=== PATIENT | female | born 1950 | race Caucasian/White ===

== ENCOUNTER → 2016-05-19 | Outpatient (CLI) | payer MEDICARE, OTHER ==
[2016-05-19 10:52] LABS: Hemoglobin A1C 4.6 % (4.2-6.1)
== END | disposition home or self-care (01) ==
LOC: LABWHC1 08:55
PROVIDERS: ATTEND Internal Medicine Endocrinology, Diabetes & Metabolism
DX: R73.09 Other abnormal glucose (principal)
CPT/HCPCS: 36415; 83036

== ENCOUNTER → 2016-11-05 | Outpatient (CLI) | payer MEDICARE, OTHER ==
--- NOTE | 2016-11-05 16:52 | US ---
EXAMINATION TYPE: US venous doppler duplex LE RT DATE OF EXAM: 11/05/2016 4:42 PM COMPARISON: NONE CLINICAL HISTORY: DVT R60.0. Rt lower leg, foot redness and pain SIDE PERFORMED: Right TECHNIQUE: The lower extremity deep venous system is examined utilizing real time linear array sonog jeremie with graded compression, doppler sonography and color-flow sonography. VESSELS IMAGED: External Iliac Vein (EIV) Common Femoral Vein Deep Femoral Vein Greater Saphenous Vein * Femoral Vein Popliteal Vein Small Saphenous Vein * Proximal Calf Veins (* superficial vessels) Right Leg: Negative for DVT IMPRESSION: No evidence of deep venous thrombosis in the right leg. Normal exam.
[2016-11-05 17:14] LABS: Basophils % (A) 0 %; CHCM 34.5; Eosinophils # (A) 0.1 k/uL (0-0.7); Eosinophils % (A) 1 %; HDW 2.49; HGB 15.1 gm/dL (11.4-16.0); Luc # (Auto) 0.24; Luc % (Auto) 2; Lymphocytes # (A) 1.2 k/uL (1.0-4.8); Lymphocytes % (A) 11 %; MCH 32.4 pg (25.0-35.0); MCHC 35.9 g/dL (31.0-37.0); MCV 90.2 fL (80.0-100.0); Mean Platelet Volume 6.9; Monocytes # (A) 0.6 k/uL (0-1.0); Monocytes % (A) 5 %; Neutrophils # (A) 9.1 k/uL (1.3-7.7); Neutrophils % (A) 81 %; RBC 4.66 m/uL (3.80-5.40); RDW 13.1 % (11.5-15.5); WBC 11.2 k/uL (3.8-10.6)
[2016-11-05 17:31] LABS: Anion Gap 13 mmol/L; Blood Urea Nitrogen 20 mg/dL (7-17); Calcium 9.8 mg/dL (8.4-10.2); Carbon Dioxide 28 mmol/L (22-30); Chloride 101 mmol/L (98-107); Glucose 64 mg/dL (74-99); Non-African American GFR(MDRD) >60 (>60 ml/min/1.73 sqM); Sodium 142 mmol/L (137-145)
[2016-11-05 17:32] LABS: Rheumatoid Factor, Qnt 14 IU/mL (<12)
[2016-11-05 18:26] LABS: C Reactive Protein 153.5 mg/L (<10.0)
[2016-11-05 20:55] LABS: Erythrocyte Sedimentation Rate 15 mm/hr (0-20)
[2016-11-06 14:11] LABS: C-ANCA <1:20 Titer (<1:20); P-ANCA <1:20 Titer (<1:20)
== END | disposition home or self-care (01) ==
LOC: RADUSWWP 16:22
PROVIDERS: ATTEND Family Medicine
DX: R60.0 Localized edema (principal); L03.119 Cellulitis of unspecified part of limb; I77.6 Arteritis, unspecified
CPT/HCPCS: 36415; 80048; 85025; 85652; 86038; 86140; 86255; 86431; 87040

== ENCOUNTER → 2016-11-17 | Outpatient (CLI) | payer MEDICARE, OTHER ==
--- NOTE | 2016-11-18 10:15 | ECHOF ---
Referral Reason:R01.1 Heart Murmur MEASUREMENTS -------- HEIGHT: 157.5 cm WEIGHT: 77.1 kg BP: 145/75 RVIDd: 3.0 cm (< 3.3) IVSd: 1.1 cm (0.6 - 1.1) LVIDd: 4.3 cm (3.9 - 5.3) LVPWd: 1.1 cm (0.6 - 1.1) IVSs: 1.5 cm LVIDs: 2.6 cm LVPWs: 1.5 cm LAESV Index (A-L): 16.33 ml/m Ao Diam: 3.3 cm (2.0 - 3.7) AV Cusp: 1.6 cm (1.5 - 2.6) LA Diam: 2.6 cm (2.7 - 3.8) MV EXCURSION: 13.883 mm (> 18.000) MV EF SLOPE: 44 mm/s (70 - 150) EPSS: 0.6 cm MV E Christophe: 0.49 m/s MV DecT: 310 ms MV A Christophe: 0.72 m/s MV E/A Ratio: 0.68 RAP: 5.00 mmHg RVSP: 25.24 mmHg FINDINGS -------- Sinus rhythm. This was a technically adequate study. The left ventricular size is normal. Left ventricular wall thickness is normal. Overall left ventricular systolic function is normal with, an EF between 55 - 60 %. The right ventricle is normal in size and function. Normal LA size by volume 22+/-6 ml/m2. The right atrium is normal in size. The aortic valve is trileaflet, and appears structurally normal. No aortic stenosis or regurgitation. The mitral valve is normal. There is trace mitral regurgitation. Trace tricuspid regurgitation present. There is no evidence of pulmonary hypertension. The right ventricular systolic pressure, as measured by Doppler, is 25.24mmHg. Trace/mild (physiologic) pulmonic regurgitation. The aortic root size is normal. Normal inferior vena cava with normal inspiratory collapse consistent with estimated right atrial pressure of 5 mmHg. There is no pericardial effusion. CONCLUSIONS -------- 1. Sinus rhythm. 2. The aortic root size is normal. 3. There is no pericardial effusion. 4. This was a technically adequate study. 5. Overall left ventricular systolic function is normal with, an EF between 55 - 60 %. 6. Normal LA size by volume 22+/-6 ml/m2. 7. The aortic valve is trileaflet, and appears structurally normal. No aortic stenosis or regurgitation. 8. There is trace mitral regurgitation. 9. Trace tricuspid regurgitation present. 10. There is no evidence of pulmonary hypertension. 11. Trace/mild (physiologic) pulmonic regurgitation. SERVICE DESK LEAD: Lane Thompson RDCS
== END | disposition home or self-care (01) ==
LOC: RADECHMAIN 15:37
PROVIDERS: ATTEND Family Medicine
DX: I08.1 Rheumatic disorders of both mitral and tricuspid valves (principal)
CPT/HCPCS: 93306

== ENCOUNTER → 2016-12-01 | Outpatient (CLI) | payer MEDICARE, OTHER ==
[2016-12-01 10:31] LABS: Basophils % (A) 1 %; CH 31.4; CHCM 33.7; Eosinophils # (A) 0.3 k/uL (0-0.7); Eosinophils % (A) 7 %; HCT 45.7 % (34.0-46.0); HDW 2.39; HGB 15.2 gm/dL (11.4-16.0); Luc % (Auto) 4; Lymphocytes # (A) 1.5 k/uL (1.0-4.8); Lymphocytes % (A) 29 %; MCH 31.1 pg (25.0-35.0); MCHC 33.3 g/dL (31.0-37.0); MCV 93.6 fL (80.0-100.0); Mean Platelet Volume 7.1; Monocytes # (A) 0.5 k/uL (0-1.0); Monocytes % (A) 10 %; Neutrophils # (A) 2.6 k/uL (1.3-7.7); Neutrophils % (A) 50 %; RBC 4.89 m/uL (3.80-5.40); RDW 14.2 % (11.5-15.5); WBC 5.2 k/uL (3.8-10.6); WBC (Perox) 5.34
[2016-12-01 11:56] LABS: ALT 53 U/L (9-52); AST 30 U/L (14-36); Anion Gap 10 mmol/L; Blood Urea Nitrogen 15 mg/dL (7-17); Carbon Dioxide 27 mmol/L (22-30); Chloride 104 mmol/L (98-107); Creatine Kinase 64 U/L (30-135); Glucose 59 mg/dL (74-99); Non-African American GFR(MDRD) >60 (>60 ml/min/1.73 sqM); Potassium 3.6 mmol/L (3.5-5.1); Sodium 141 mmol/L (137-145); Uric Acid 3.6 mg/dL (3.7-7.4)
[2016-12-01 12:00] LABS: Rheumatoid Factor, Qnt <9 IU/mL (<12)
[2016-12-01 12:14] LABS: Erythrocyte Sedimentation Rate 4 mm/hr (0-20)
[2016-12-01 12:35] LABS: C Reactive Protein <5.0 mg/L (<10.0)
[2016-12-01 17:12] LABS: Cyclic Citrull Pep IgG Unit <0.5 U/mL; Cyclic Citrullinated Pep IgG NEGATIVE (NEGATIVE)
[2016-12-02 11:08] LABS: HLA B27 NEGATIVE; HLA B27 Comment SEEBELOW
[2016-12-04 08:31] LABS: Mis test requested (Blood) ETA 14-3-3 PROTEIN
== END | disposition home or self-care (01) ==
LOC: LABWHC1 09:57
PROVIDERS: ATTEND Physician Assistant
DX: M45.0 Ankylosing spondylitis of multiple sites in spine (principal); M13.0 Polyarthritis, unspecified
CPT/HCPCS: 36415; 80048; 82164; 82306; 82550; 83520; 84439; 84443; 84450; 84460; 84550; 85025; 85652; 86140; 86200; 86431; 86812

== ENCOUNTER 2017-09-25 12:06 | Emergency (ER) | payer MEDICARE, OTHER ==
[2017-09-25 12:14] VITALS: RESP 18
[2017-09-25] MEDS ORDERED: ACETAMINOPHEN TAB 500 MG TAB PO STA (12:47)
[2017-09-25] MEDS ORDERED: IBUPROFEN 600 MG TAB PO STA (12:47)
[2017-09-25 12:58] LABS: Basophils # (A) 0.1 k/uL (0-0.2); Basophils % (A) 0 %; Eosinophils % (A) 0 %; HCT 39.2 % (34.0-46.0); HGB 12.8 gm/dL (11.4-16.0); Lymphocytes # (A) 1.2 k/uL (1.0-4.8); Lymphocytes % (A) 4 %; MCH 29.8 pg (25.0-35.0); MCHC 32.6 g/dL (31.0-37.0); MCV 91.6 fL (80.0-100.0); Mean Platelet Volume 7.7; Monocytes # (A) 1.9 k/uL (0-1.0); Monocytes % (A) 7 %; Neutrophils # (A) 23.4 k/uL (1.3-7.7); Neutrophils % (A) 87 %; Platelet Count 305 k/uL (150-450); RBC 4.27 m/uL (3.80-5.40); RDW 13.9 % (11.5-15.5)
[2017-09-25] MEDS: SODIUM CHLORIDE 0.9% 500 ML IV SCH ×4 (13:03→15:57)
[2017-09-25 13:04] LABS: WBC 26.9 k/uL (3.8-10.6)
[2017-09-25 13:07] LABS: INR 1.1 (<1.2); Partial Thromboplastin Time 24.4 sec (22.0-30.0)
[2017-09-25 13:08] LABS: ALT 160 U/L (9-52); AST 110 U/L (14-36); Albumin 3.7 g/dL (3.5-5.0); Alkaline Phosphatase 150 U/L (38-126); Anion Gap 16 mmol/L; Blood Urea Nitrogen 22 mg/dL (7-17); Calcium 9.5 mg/dL (8.4-10.2); Carbon Dioxide 23 mmol/L (22-30); Chloride 94 mmol/L (98-107); Glucose 380 mg/dL (74-99); Potassium 4.5 mmol/L (3.5-5.1); Sodium 133 mmol/L (137-145); Total Bilirubin 0.9 mg/dL (0.2-1.3); Total Protein 6.4 g/dL (6.3-8.2)
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
[2017-09-25 13:39] LABS: Appearance,Urine Clear (Clear); Bilirubin,Urine Negative (Negative); Blood,Urine Negative (Negative); Color,Urine Yellow; Glucose,Urine (UA) 4+ (Negative); Ketones,Urine Trace (Negative); Leukocyte Esterase,Urine Negative (Negative); Nitrite,Urine Negative (Negative); Protein,Urine Trace (Negative); Specific Gravity,Urine 1.025 (1.001-1.035); Urobilinogen,Urine <2.0 mg/dL (<2.0)
[2017-09-25] MEDS ORDERED: RX INFO: IV CONTRAST WAS GIVEN 1 EACH MISC MISCELLANE PRN (13:43)
--- NOTE | 2017-09-25 14:28 | XR ---
EXAMINATION TYPE: XR chest 2V DATE OF EXAM: 09/25/2017 COMPARISON: 02/04/2016 INDICATION: Pain, fever TECHNIQUE: Frontal and lateral views of the chest are obtained. FINDINGS: The heart size is normal. The pulmonary vasculature is normal. Small stable granuloma appears to be at the right costophrenic angle. No suspicious infiltrates are e vident. IMPRESSION: 1. No acute pulmonary process.
--- NOTE | 2017-09-25 14:58 | CT ---
EXAMINATION TYPE: CT abdomen pelvis w con DATE OF EXAM: 09/25/2017 COMPARISON: CT abdomen pelvis 11/10/2013 HISTORY: vomiting, fever, recent whipple procedure for insulinoma CT DLP: 864.2 mGycm Automated exposure control for dose reduction was used. TECHNIQUE: Helical acquisition of images from the lung bases through the pelvis have been completed. CONTRAST: Performed with Oral Contrast and with IV Contrast, patient injected with 100 mL of Isovue 300. FINDINGS: Patient is status post Whipple procedure. NG tube is in place. It is coiled within the stom ach. LUNG BASES: There is a bandlike areas of increased attenuation at the lung bases which may reflect at electasis. Granuloma present in the right lower lobe calcified right hilar nodes, subcarinal nodes. AORTA: No significant abnormality is appreciated. LIVER/GB: There is a low dense focus measuring 3 cm multiple air-fluid levels within the inferior asp ect of the posterior right lobe liver. Gallbladder is absent. There are low dense foci with nodular a reas of enhancement similar to prior CT, suggestive of hemangiomas. Liver shows low attenuation likel y due to hepatic steatosis. PANCREAS: Postop change status post pancreatectomy at the head of the pancreas, surgical clips are pr esent, body tail remain in place. SPLEEN: Calcifications are compatible with old granulomatous disease. ADRENALS: No significant abnormality is seen. KIDNEYS: Subcentimeter hypodense focus in the lower pole of the right kidney is indeterminate. No hyd ronephrosis bilaterally. 2 punctate nonobstructive calculi present within the left kidney as on prior REPRODUCTIVE ORGANS: Heterogeneously enhancing bulky appearance to the uterus suggests fibroids BOWEL: Postop changes are noted. There are surgical clips present in the anterior abdominal wall. FREE AIR: No Free Air visible. ASCITES: None visible. PELVIC ADENOPATHY: None visualized. RETROPERITONEAL ADENOPATHY: No Retroperitoneal Adenopathy visible. URINARY BLADDER: No significant abnormality is seen. OSSEOUS STRUCTURES: Degenerative disc disease and facet arthropathy noted at the lower lumbar spine, minimal anterolisthesis grade 1 L4-5. IMPRESSION: SMALL LIVER ABSCESS SUSPECTED. POSTOP CHANGES. PROBABLE BASILAR ATELECTASIS . NG TUBE IS DESCRIBED. A DDITIONAL FINDINGS ABOVE.
[2017-09-25] MEDS ORDERED: PIPERACILLIN-TAZOBACTAM 3.375 GM in DEXTROSE/WATER 1 50ML.BAG IVPB STA (15:13)
[2017-09-25] MEDS ORDERED: VANCOMYCIN IV PER PHARMACY 1 EACH MISC MISCELLANE PRN (15:13)
[2017-09-25] MEDS ORDERED: VANCOMYCIN 1,500 MG in SODIUM CHLORIDE 0.9% 250 ML IVPB STA (15:20)
[2017-09-25] MEDS ORDERED: cefTRIAXone IN SWFI 1,000 MG/10 ML SYRINGE IVP STA (15:23)
[2017-09-25 15:32] VITALS: TEMP 97.9
[2017-09-25 18:31] VITALS: BP 97/53; PULSE 65
== END 2017-09-25 18:30 ==
LOC: EC 12:06
DX: K75.0 Abscess of liver (principal); A41.9 Sepsis, unspecified organism; E78.5 Hyperlipidemia, unspecified; I10 Essential (primary) hypertension; Z79.82 Long term (current) use of aspirin; Z79.51 Long term (current) use of inhaled steroids; Z79.4 Long term (current) use of insulin; Z79.899 Other long term (current) drug therapy
CPT/HCPCS: 99285 ×2; 96365 ×2; 96366 ×3; 96375; 96374; 36415; 80053; 83605; 85025; 85610; 85730; 81003; 87040; 87086; 87077; 87186; 71046; 74177; 96372; J3370; J0696; J2353; Q9967

== ENCOUNTER → 2017-10-08 | Outpatient (CLI) | payer MEDICARE, OTHER ==
[2017-10-08 11:36] VITALS: BP 112/77; PULSE 75; RESP 16; TEMP 98.2
[2017-10-08 11:47] LABS: Basophils % (A) 1 %; Eosinophils # (A) 0.2 k/uL (0-0.7); Eosinophils % (A) 4 %; HCT 41.4 % (34.0-46.0); HGB 13.4 gm/dL (11.4-16.0); Lymphocytes # (A) 1.8 k/uL (1.0-4.8); Lymphocytes % (A) 28 %; MCH 29.1 pg (25.0-35.0); MCHC 32.4 g/dL (31.0-37.0); MCV 89.8 fL (80.0-100.0); Mean Platelet Volume 6.9; Monocytes # (A) 0.5 k/uL (0-1.0); Monocytes % (A) 8 %; Neutrophils # (A) 3.8 k/uL (1.3-7.7); Neutrophils % (A) 58 %; Platelet Count 562 k/uL (150-450); RBC 4.61 m/uL (3.80-5.40); WBC 6.6 k/uL (3.8-10.6)
[2017-10-08 12:03] LABS: Anion Gap 11 mmol/L; Blood Urea Nitrogen 15 mg/dL (7-17); Calcium 9.7 mg/dL (8.4-10.2); Carbon Dioxide 30 mmol/L (22-30); Chloride 99 mmol/L (98-107); Glucose 114 mg/dL (74-99); Potassium 4.2 mmol/L (3.5-5.1); Sodium 140 mmol/L (137-145)
== END | disposition home or self-care (01) ==
LOC: PROCWHC3 11:22
PROVIDERS: ATTEND Surgery Surgical Critical Care
DX: K75.0 Abscess of liver (principal)
CPT/HCPCS: 80048; 85025; 36591; J1642

== ENCOUNTER → 2017-10-29 | Outpatient (CLI) | payer MEDICARE, OTHER ==
[2017-10-29 15:05] LABS: ALT 59 U/L (9-52); AST 46 U/L (14-36); Albumin 4.2 g/dL (3.5-5.0); Alkaline Phosphatase 59 U/L (38-126); Anion Gap 11 mmol/L; Blood Urea Nitrogen 15 mg/dL (7-17); Calcium 9.4 mg/dL (8.4-10.2); Carbon Dioxide 26 mmol/L (22-30); Chloride 103 mmol/L (98-107); Glucose 118 mg/dL (74-99); Potassium 3.9 mmol/L (3.5-5.1); Sodium 140 mmol/L (137-145); Total Bilirubin 0.3 mg/dL (0.2-1.3); Total Protein 6.7 g/dL (6.3-8.2)
[2017-10-29 20:07] LABS: Hemoglobin A1C 6.8 % (4.0-6.0)
== END | disposition home or self-care (01) ==
LOC: LABWHC1 14:24
PROVIDERS: ATTEND Internal Medicine Endocrinology, Diabetes & Metabolism
DX: E10.65 Type 1 diabetes mellitus with hyperglycemia (principal)
CPT/HCPCS: 36415; 80053; 83036; 84681

== ENCOUNTER → 2017-11-06 | Outpatient (CLI) | payer MEDICARE, OTHER ==
--- NOTE | 2017-11-06 09:04 | FL ---
EXAMINIATION: Upper GI examination DATE: 11/06/2017 CLINICAL INDICATION: 66-year-old female history of insulinoma and Whipple procedure on 08/30/2017, pat ient with early satiety and fullness, assess for narrowing at the gastrojejunostomy. COMPARISON: Correlation CT 09/25/2017 Total Fluoroscopy Time: 2 minutes 37 seconds Total images: 6. FINDINGS: The esophagus has a normal course and caliber but shows moderate tertiary peristalsis. No mucosal abn ormality or fixed narrowing. No hiatal hernia is identified. Spontaneous moderate gastroesophageal reflux is encountered when the patient is brought supine. Howev er, subsequent Valsalva and positional maneuvers were unable to reproduce reflux. When the patient is supine, the refluxed contrast remains pooled in the esophagus and prominent terti lucie peristalsis is noted. The stomach shows a couple small less than 1 cm round filling defects likely representing small hyper plastic polyps towards the distal body and antrum region. Otherwise, no suspicious persistent filling defect is encountered. Postsurgical changes of Whipple procedure. The gastrojejunostomy is visualized and there is adequate passage across the anastomosis without any significant narrowing demonstrated Eventually, there is some reflux of contrast into the pancreaticobiliary limb. IMPRESSION: 1. Moderate tertiary peristalsis suggesting early presbyesophagus. When the patient is supine, contra st remains pooled in the esophagus. Even on the initial upright swallows, there is mild delay in pass age into the stomach. 2. An episode of moderate spontaneous gastroesophageal reflux when the patient is brought supine. How ever, Valsalva and positional maneuvers failed to reproduce this reflux. 3. A couple tiny hyperplastic polyps in the stomach are suggested and can be seen in the setting of c hronic inflammation. 4. Patent gastrojejunostomy status post Whipple.
== END | disposition home or self-care (01) ==
LOC: RADFLMAIN 07:42
PROVIDERS: ATTEND Surgery Surgical Critical Care
DX: D13.7 Benign neoplasm of endocrine pancreas (principal); K21.9 Gastro-esophageal reflux disease without esophagitis; Z98.890 Other specified postprocedural states
CPT/HCPCS: 74246

== ENCOUNTER → 2017-12-22 | Outpatient (CLI) | payer MEDICARE, OTHER ==
[2017-12-22 09:52] LABS: Basophils % (A) 1 %; Eosinophils # (A) 0.2 k/uL (0-0.7); Eosinophils % (A) 3 %; HCT 43.6 % (34.0-46.0); Lymphocytes # (A) 1.8 k/uL (1.0-4.8); Lymphocytes % (A) 36 %; MCH 27.1 pg (25.0-35.0); MCHC 32.2 g/dL (31.0-37.0); MCV 84.1 fL (80.0-100.0); Mean Platelet Volume 6.9; Monocytes # (A) 0.4 k/uL (0-1.0); Monocytes % (A) 8 %; Neutrophils # (A) 2.4 k/uL (1.3-7.7); Neutrophils % (A) 48 %; Platelet Count 246 k/uL (150-450); RBC 5.19 m/uL (3.80-5.40); RDW 15.3 % (11.5-15.5); WBC 5.1 k/uL (3.8-10.6)
[2017-12-22 10:05] LABS: ALT 53 U/L (9-52); AST 35 U/L (14-36); Alkaline Phosphatase 75 U/L (38-126); Anion Gap 8 mmol/L; Blood Urea Nitrogen 17 mg/dL (7-17); Calcium 9.7 mg/dL (8.4-10.2); Carbon Dioxide 31 mmol/L (22-30); Chloride 102 mmol/L (98-107); Cholesterol 133 mg/dL (<200); Glucose 109 mg/dL (74-99); HDL Cholesterol 51 mg/dL (40-60); LDL Cholesterol,Calculated 63 mg/dL (0-99); Potassium 3.6 mmol/L (3.5-5.1); Sodium 141 mmol/L (137-145); Total Bilirubin 0.5 mg/dL (0.2-1.3); Total Protein 6.8 g/dL (6.3-8.2); Triglycerides 95 mg/dL (<150)
== END | disposition home or self-care (01) ==
LOC: LABWHC1 09:18
PROVIDERS: ATTEND Nurse Practitioner Family
DX: I10 Essential (primary) hypertension (principal); E78.5 Hyperlipidemia, unspecified
CPT/HCPCS: 36415; 80053; 80061; 85025

== ENCOUNTER → 2018-02-23 | Outpatient (CLI) | payer MEDICARE, OTHER ==
--- NOTE | 2018-02-24 13:11 | MM ---
Reason for exam: screening (asymptomatic). Last mammogram was performed 2 years and 6 months ago. History: Patient is postmenopausal. Benign excisional biopsy. Physical Findings: A clinical breast exam by your physician is recommended on an annual basis and results should be correlated with mammographic findings. MG 3D Screening Mammo W/Cad Bilateral CC and MLO view(s) were taken. Prior study comparison: August 29, 2015, bilateral MG 3d screening mammo w/cad. April 21, 2013, bilateral digital screening mammo w/CAD. There are scattered fibroglandular densities. No significant changes when compared with prior studies. ASSESSMENT: Benign, BI-RAD 2 RECOMMENDATION: Routine screening mammogram of both breasts in 1 year.
== END | disposition home or self-care (01) ==
LOC: RADMAMWWP 09:22
PROVIDERS: ATTEND Family Medicine
DX: Z12.31 Encounter for screening mammogram for malignant neoplasm of breast (principal)
CPT/HCPCS: 77063; 77067

== ENCOUNTER → 2018-03-10 | Outpatient (CLI) | payer MEDICARE, OTHER | END | disposition home or self-care (01) | LOC: LABWHC1 09:51 | PROVIDERS: ATTEND Internal Medicine Endocrinology, Diabetes & Metabolism | DX: E13.9 Other specified diabetes mellitus without complications (principal) | CPT/HCPCS: 36415; 82947; 84681 ==

== ENCOUNTER → 2018-12-10 | Outpatient (CLI) | payer MEDICARE, OTHER ==
--- NOTE | 2018-12-10 09:46 | US ---
EXAMINATION TYPE: US abdomen complete DATE OF EXAM: 12/10/2018 COMPARISON: CT, [place] UGI CLINICAL HISTORY: R10.9 ABD PAIN. RUQ pain x 2 months; patient stated had Whipple procedure x 2 with most recent at [facility] 2018 for insulinoma; gallbladder removed; prior liver abscess EXAM MEASUREMENTS: Liver Length: 11.8 cm Gallbladder Wall: surgically removed CBD: 0.2 cm Spleen: 9.8 cm Right Kidney: 11.5 x 5.4 x 4.3 cm Left Kidney: 11.2 x 4.2 x 6.2 cm Pancreas: Visualized portions of the remaining pancreas appear unremarkable. Pancreatic head is surg ically absent. Liver: lobular, hyperechoic geographic areas noted throughout liver; hypoechoic oval area is noted r ight lobe = 1.6 x 1.4 x 1.1cm may be hemangioma as discussed on the prior CT of 09/25/2017 although th is does not have a typical appearance of a hemangioma on ultrasound there is background hepatic steat osis; multiple, hyperechoic foci noted in right lobe are likely granulomas. Overall hepatic echotextu re is inhomogeneous. Gallbladder: surgically removed Evidence for sonographic Guzman's sign: midline epigastric pain with probe pressure at overlying mima wel gas. No right upper quadrant pain. CBD: wnl Spleen: wnl Right Kidney: No hydronephrosis or masses seen Left Kidney: No hydronephrosis; hyperechoic, parallel foci suggests vessel wall calcifications Upper IVC: wnl Abd Aorta: wnl The liver is inhomogeneous. The intrahepatic portion of the IVC and proximal abdominal aorta are with in normal limits. There is no evidence of cholelithiasis. Common bile duct is unremarkable. The vi sualized portions of the pancreas are homogenous. The spleen is unremarkable. Kidneys are symmetric and free of hydronephrosis. No renal lesions are seen. IMPRESSION: 1. Inhomogeneous hepatic echotexture. Further evaluation with MRI liver is recommended to evaluate fo r altered perfusion, metastasis, or heterogeneity from geographic hepatic steatosis. 2. Postsurgical change of prior Whipple with partial pancreatectomy and surgical absence of the gallb ladder.
== END | disposition home or self-care (01) ==
LOC: RADUSWWP 08:15
PROVIDERS: ATTEND Internal Medicine Geriatric Medicine
DX: R10.9 Unspecified abdominal pain (principal); Z90.411 Acquired partial absence of pancreas; Z90.49 Acquired absence of other specified parts of digestive tract
CPT/HCPCS: 76700

== ENCOUNTER → 2019-01-04 | Outpatient (CLI) | payer MEDICARE, OTHER ==
--- NOTE | 2019-01-06 05:12 | MR ---
EXAMINATION TYPE: MR abdomen wo/w con DATE OF EXAM: 01/04/2019 COMPARISON: Ultrasound 12/10/[address] 09/25/2017 HISTORY: 68-year-old female Liver disease, unspecified. History of Whipple procedure followed by live r abscess. Technique: Multiplanar, multisequence images of the abdomen were obtained before and after administra tion of 7 ml mL intravenous Gadavist gadolinium contrast. FINDINGS: Liver normal size at 15.0 cm. No fatty infiltration of the liver on opposed phase T1-weighted sequen krish. Known 4.5 cm lobulated hemangioma posterior right liver lobe. Stable smaller hemangioma right hepatic dome measures 1.4 cm. A third and fourth small hemangioma posterior right hepatic lobe and anterior right liver lobe measure up to 1.1 cm. Some focal wedge-shaped vascular shunting anterolateral right liver lobe. The previously seen posterior inferior right liver abscess has resolved. Portal venous system is patent. The patient is status post Whipple procedure. No biliary ductal dilatation. The choledochojejunostomy is visualized. No enhancing pancreatic lesion. The main pancreatic duct is normal caliber. A couple subcentimeter T2 hyperintensities along the renal cortices compatible with small cysts. Gallbladder surgically absent. Possible 1.0 cm nodularity left adrenal gland, no progression from pat ient's prior CT. Spleen appears within normal limits. Foci of susceptibility artifact along the anterior abdominal wall from prior surgery. No upper abdominal lymphadenopathy, ascites fluid, or gross bowel abnormality. IMPRESSION: 1. Approximately 4 hepatic hemangiomas, largest measuring up to nearly 5 cm. Resolution of the patien t's previous right hepatic lobe abscess. 2. Status post Whipple procedure. The choledocho-jejunostomy is visualized. No biliary ductal dilatat ion. 3. No recurrent pancreatic lesion. 4. Possible 1 cm nodularity left adrenal gland is stable suggesting a benign etiology such as tiny ad renal adenoma.
== END | disposition home or self-care (01) ==
LOC: RADMRIMAIN 12:50
PROVIDERS: ATTEND Internal Medicine Geriatric Medicine
DX: D18.03 Hemangioma of intra-abdominal structures (principal); Z90.411 Acquired partial absence of pancreas
CPT/HCPCS: 74183; A9585

== ENCOUNTER → 2020-02-15 | Outpatient (CLI) | payer MEDICARE, OTHER ==
--- NOTE | 2020-02-16 20:28 | BD ---
EXAMINATION TYPE: Axial Bone Density DATE OF EXAM: 02/15/2020 COMPARISON: NONE CLINICAL HISTORY: Height: 60.5 IN Weight: 157 LBS RISK FACTORS HISTORY OF: Active: YES Postmenopausal woman: AGE 49 MEDICATIONS: Additional Medications: VIT D, BLOOD PRESSURE MEDS, CHOLESTEROL MEDS, METFORMIN, DIABETES MED EXAM MEASUREMENTS: Bone mineral densitometry was performed using the nChannel System. Bone mineral density as measured about the Lumbar spine is: ----- L1-L4(G/cm2): 1.359 T Score Values are as follows: ----- L2: 1.3 ----- L3: 3.3 ----- L4: 1.3 ----- L1-L4: 1.5 Bone mineral density BASELINE Bone mineral density about the R hip (g/cm2): 1.052 Bone mineral density about the L hip (g/cm2): 0.977 T Score values are as follows: -----R Neck: 0.1 -----L Neck: -0.4 -----R Total: 0.5 -----L Total: -0.2 Bone mineral density BASELINE IMPRESSION: Normal (Values between +1 and -1 indicate normal bone mass). Consider repeating this study in 5 year s or sooner if there is some new clinical indication. NOTE: T-SCORE=SD OF THE YOUNG ADULT MEAN.
--- NOTE | 2020-02-17 12:01 | MM ---
Reason for exam: screening (asymptomatic). Last mammogram was performed 2 years ago. History: Patient is postmenopausal. Benign excisional biopsy. Physical Findings: A clinical breast exam by your physician is recommended on an annual basis and results should be correlated with mammographic findings. MG 3D Screening Mammo W/Cad Bilateral CC and MLO view(s) were taken. Prior study comparison: February 23, 2018, bilateral MG 3d screening mammo w/cad. August 29, 2015, bilateral MG 3d screening mammo w/cad. There are scattered fibroglandular densities. There is chronic nodularity in the left breast upper outer quadrant. Global asymmetry upper outer quadrant is unchanged. No significant changes when compared with prior studies. ASSESSMENT: Benign, BI-RAD 2 RECOMMENDATION: Routine screening mammogram of both breasts in 1 year.
== END | disposition home or self-care (01) ==
LOC: RADMAMWWP 15:03
PROVIDERS: ATTEND Internal Medicine Geriatric Medicine
DX: Z12.31 Encounter for screening mammogram for malignant neoplasm of breast (principal); M81.0 Age-related osteoporosis without current pathological fracture
CPT/HCPCS: 77063; 77067; 77080

== ENCOUNTER → 2020-03-20 | Outpatient (CLI) | payer MEDICARE, OTHER ==
--- NOTE | 2020-03-20 15:22 | US ---
EXAMINATION TYPE: US transvaginal DATE OF EXAM: 03/20/2020 COMPARISON: NONE CLINICAL HISTORY: R10.2 PELVIC PAIN. Pain patient states she believes left ovary was removed 40 years ago. TECHNIQUE: Transvaginal (TV). EXAM MEASUREMENTS: Uterus: 5.7 x 3.9 x 5.5 cm Endometrial Stripe: .5 cm 1. Uterus: Retroverted Hypoechoic area seen 1.0 x .8 x 1.1 cm 2. Endometrium: wnl 3. Right Ovary: Obscured by overlying bowel gas 4. Left Ovary: Surgically absent 5. Bilateral Adnexa: wnl 6. Posterior cul-de-sac: wnl IMPRESSION: 1. Small hypoechoic area within what appears to be the uterine fundus. Small fibroid may be present.
== END | disposition home or self-care (01) ==
LOC: RADUSWWP 14:47
PROVIDERS: ATTEND Internal Medicine Geriatric Medicine
DX: R93.89 Abnormal findings on diagnostic imaging of other specified body structures (principal); R10.2 Pelvic and perineal pain
CPT/HCPCS: 76830

== ENCOUNTER → 2021-03-21 | Outpatient (CLI) | payer MEDICARE, OTHER ==
--- NOTE | 2021-03-25 09:27 | MM ---
Reason for exam: screening (asymptomatic). Last mammogram was performed 1 year and 1 month ago. History: Patient is postmenopausal. Benign excisional biopsy. Physical Findings: A clinical breast exam by your physician is recommended on an annual basis and results should be correlated with mammographic findings. MG 3D Screening Mammo W/Cad Bilateral CC and MLO view(s) were taken. Prior study comparison: February 15, 2020, bilateral MG 3d screening mammo w/cad. February 23, 2018, bilateral MG 3d screening mammo w/cad. There are scattered fibroglandular densities. There are benign appearing round calcifications bilaterally. There is chronic nodularity bilaterally. There is no discrete abnormality. ASSESSMENT: Benign, BI-RAD 2 RECOMMENDATION: Routine screening mammogram of both breasts in 1 year.
== END | disposition home or self-care (01) ==
LOC: RADMAMWWP 16:24
PROVIDERS: ATTEND Internal Medicine Geriatric Medicine
DX: Z12.31 Encounter for screening mammogram for malignant neoplasm of breast (principal)
CPT/HCPCS: 77063; 77067

== ENCOUNTER 2021-10-09 06:16 | Day surgery (SDC) | payer MEDICARE, OTHER ==
[2021-10-09] MEDS ORDERED: LIDOCAINE 1% (10MG/ML) FOR IV START INTRADERMA PRN (06:27)
[2021-10-09] MEDS ORDERED: LACTATED RINGERS 1,000 ML IV SCH (06:27)
[2021-10-09 07:10] VITALS: TEMP 97.1
[2021-10-09 07:14] LABS: Glucose,Whole Blood 131 mg/dL (75-99)
[2021-10-09] MEDS ORDERED: PROPOFOL 10 MG/ML 20 ML VIAL IV ONE (07:36)
--- NOTE | 2021-10-09 07:51 | P.PCN ---
Date of Procedure: 10/09/21 Procedure(s) Performed: BRIEF HISTORY: Patient is a 70-year-old pleasant white female scheduled for an elective colonoscopy as a part of screening for colorectal neoplasia and family history of colon cancer diagnosed in her mother at age 75. PROCEDURE PERFORMED: Colonoscopy. PREOPERATIVE DIAGNOSIS: Screening for colon cancer and family history of colon cancer. IV sedation per Anesthesia. PROCEDURE: After informed consent was obtained, the patient, was brought into the endoscopy unit. IV sedation was administered by Anesthesia under continuous monitoring. Digital rectal examination was normal. Initially the Olympus CF-160 flexible video colonoscope was then inserted in the rectum, gradually advanced into the cecum without any difficulty. Careful examination was performed as the scope was gradually being withdrawn. Ileocecal valve and the appendiceal orifice were visualized and appeared normal. Prep was excellent. Mucosa of the cecum, ascending colon, transverse colon, descending colon, sigmoid colon, and rectum appeared normal. At her sigmoid diverticulosis. Retroflexion was performed in the rectum and no lesions were seen. The patient tolerated the procedure well. IMPRESSION: Normal-appearing colon from rectum to cecum with no evidence of colorectal neoplasia . Scattered sigmoid diverticulosis. RECOMMENDATIONS: Findings of this examination were discussed with the patient as well as her family. She was advised to have a repeat screening colonoscopy in 5 years from now because of the family history of colon cancer.
[2021-10-09 08:17] VITALS: BP 120/67; PULSE 67; RESP 16
== END 2021-10-09 08:38 | disposition home or self-care (01) ==
LOC: ORWHC2ENDO 06:16
PROVIDERS: ATTEND Internal Medicine Gastroenterology
DX: K57.30 Diverticulosis of large intestine without perforation or abscess without bleeding (principal); Z80.0 Family history of malignant neoplasm of digestive organs
CPT/HCPCS: 45378; J2704

== ENCOUNTER → 2022-11-05 | Outpatient (CLI) | payer MEDICARE, OTHER ==
--- NOTE | 2022-11-05 15:51 | BD ---
EXAMINATION TYPE: Axial Bone Density DATE OF EXAM: 11/05/2022 CLINICAL HISTORY: 71 years old Female. ICD-10 CODE: M81.0 OSTEOPOROSIS Height: 60 Weight: 142.1 FRAX RISK QUESTIONS: Alcohol (3 or more units per day): no Family History (Parent hip fracture): no Glucocorticoids (More than 3mos): no History of Fracture in Adulthood: no Secondary Osteoporosis: 1. Type 1 Diabetes: no 2. Hyperthyroidism: no 3. Menopause before 45: yes 4. Malnutrition: no 5. Chronic liver disease: no Rheumatoid Arthritis: no Current Tobacco Use: no RISK FACTORS HISTORY OF: Hip Fracture (Right/Left): no Spine Fracture: no History of Wrist Fracture: no Surgery to Spine/Hip(right/left)/Wrist (right/left): no Family History of Osteoporosis: no Active: yes Diet low in dairy products/other sources of calcium: no Postmenopausal woman: yes Take estrogen and/or progesterone medications: no Lost more than 2 inches in height since high school: no Frequent falls: no Poor Health: no Hyperparathyroidism: no Adrenal Insufficiency: no MEDICATIONS: Prednisone or other steroids: no Thyroid Medications: no Osteoporosis Medications: no Additional Medications: BP Meds, Cholesterol Meds, Multi Vit, Vit D, Biotin, Magnesium, Ambien, Metfo rmin Additional History: EXAM MEASUREMENTS: Bone mineral densitometry was performed using the [employer] System. Bone mineral density as measured about the Lumbar spine is: ----- L1-L4(G/cm2): 1.329 T Score Values are as follows: ----- L1: -0.3 ----- L2: 1.1 ----- L3: 2.2 ----- L4: 1.4 ----- L1-L4: 1.2 Z Score Values are as follows: ----- L1: 1.4 ----- L2: 2.8 ----- L3: 3.9 ----- L4: 3.2 ----- L1-L4: 3.0 Bone mineral density has: decreased - 2.2 % since study of: 02/15/2020 Bone mineral density about the R hip (g/cm2): 1.011 Bone mineral density about the L hip (g/cm2): 0.923 T Score values are as follows: -----R Neck: 0.5 -----L Neck: -0.5 -----R Total: 0.0 -----L Total: -0.7 Z Score values are as follows: -----R Neck: 2.3 -----L Neck: 1.3 -----R Total: 1.6 -----L Total: 0.9 Bone mineral density has: decreased -5.8 % since study of: 02/15/2020 FRAX%s: The graph provided illustrates a 8.0% chance for a major osteoporotic fx and a 0.7% chance fo r the hips probability for fx in 10 years time. IMPRESSION: Normal (Values between +1 and -1 indicate normal bone mass). Consider repeating this study in 5 year s or sooner if there is some new clinical indication. NOTE: T-SCORE=SD OF THE YOUNG ADULT MEAN.
--- NOTE | 2022-11-06 08:38 | MM ---
Reason for Exam: Screening (asymptomatic). Last mammogram was performed 1 year(s) and 8 month(s) ago. Patient History: Menarche at age 13. First Full-Term at age 24. Left ovary removed at age 23. Postmenopausal. , Benign Excisional Biopsy. Risk Values: Vidya 5 year model risk: 1.8%. NCI Lifetime model risk: 5.1%. Prior Study Comparison: 02/23/2018 Bilateral Screening Mammogram, [facility]. 02/15/2020 Bilateral Screening Mammogram, [facility]. 03/21/2021 Bilateral Screening Mammogram, [facility]. Tissue Density: The breast tissue is heterogeneously dense. This may lower the sensitivity of mammography. Findings: Analyzed By CAD. There is no suspicious group of microcalcifications or new suspicious mass in either breast. Benign-appearing round calcifications bilaterally. Chronic nodularity bilaterally. Overall Assessment: Benign, BI-RAD 2 Management: Screening Mammogram of both breasts in 1 year. A clinical breast exam by your physician is recommended on an annual basis and results should be correlated with mammographic findings. Note on Vidya scores and lifetime risk: 1. A Vidya score greater than 3% is considered moderate risk. If this is the case, consider specialist referral to assess eligibility for a risk reducing agent. If overall lifetime risk for the development of breast cancer is 20% or higher, the patient may qualify for future screening with alternating mammogram and breast MRI. Electronically signed and approved by: Roger Benjamin D.O.
== END | disposition home or self-care (01) ==
LOC: RADBDWWP 14:35
PROVIDERS: ATTEND Internal Medicine Geriatric Medicine
DX: Z12.31 Encounter for screening mammogram for malignant neoplasm of breast (principal); M81.0 Age-related osteoporosis without current pathological fracture; Z78.0 Asymptomatic menopausal state
CPT/HCPCS: 77063; 77067; 77080

== ENCOUNTER → 2023-08-20 | Outpatient (CLI) | payer MEDICARE, OTHER ==
[2023-08-20 16:07] LABS: HCT 38.4 % (37.2-46.3); HGB 11.1 g/dL (12.0-15.0); MCH 21.6 pg (27.0-32.0); MCHC 28.9 g/dL (32.0-37.0); MCV 74.6 FL (80.0-97.0); Mean Platelet Volume 10.3 FL (9.5-12.2); NRBC Per 100 WBC 0 X 10*3/uL (0.00-0.01); Platelet Count 445 X 10*3/uL (140-440); RBC 5.15 X 10*6/uL (4.10-5.20); RDW 19.6 % (11.5-14.5); WBC 6.67 X 10*3/uL (4.50-10.00)
[2023-08-20 16:20] LABS: ALT 28 U/L (8-44); AST 18 U/L (13-35); Albumin 4.5 g/dL (3.8-4.9); Albumin/Globulin Ratio 1.96 Ratio (1.60-3.17); Alkaline Phosphatase 98 U/L (41-126); Blood Urea Nitrogen 12.9 mg/dL (9.0-27.0); Calcium 9.9 mg/dL (8.7-10.3); Carbon Dioxide 22.6 mmol/L (21.6-31.8); Chloride 105 mmol/L (96-109); Chol/HDL Ratio 2.36 Ratio; Globulin 2.3 g/dL (1.6-3.3); Glucose 123 mg/dL (70-110); LDL Cholesterol,Calculated 68.9 mg/dL (0.0-131.0); Potassium 4.8 mmol/L (3.5-5.5); Sodium 141 mmol/L (135-145); Total Bilirubin <0.2 mg/dL (0.3-1.2); Total Protein 6.8 g/dL (6.2-8.2); VLDL Calculation 17.58 mg/dL (5.00-40.00)
[2023-08-20 16:35] LABS: Basophils # (A) 0.05 X 10*3/uL (0.00-0.10); Basophils % (A) 0.7 %; Eosinophils # (A) 0.11 X 10*3/uL (0.04-0.35); Eosinophils % (A) 1.6 %; Monocytes # (A) 0.54 X 10*3/uL (0.20-1.00); Monocytes % (A) 8.1 %; Neutrophils # (A) 4.15 X 10*3/uL (1.80-7.70); Neutrophils % (A) 62.3 %; RBC Morphology Normal (Normal)
== END | disposition home or self-care (01) ==
LOC: LABWHC1 09:01
PROVIDERS: ATTEND Internal Medicine Geriatric Medicine
DX: I10 Essential (primary) hypertension (principal); E11.65 Type 2 diabetes mellitus with hyperglycemia; E78.2 Mixed hyperlipidemia
CPT/HCPCS: 36415; 80053; 80061; 83036; 85025

== ENCOUNTER → 2024-02-16 | Outpatient (CLI) | payer MEDICARE, OTHER ==
--- NOTE | 2024-02-17 12:13 | MM ---
Reason for Exam: Screening (asymptomatic). Last mammogram was performed 1 year(s) and 3 month(s) ago. Patient History: Menarche at age 13. First Full-Term at age 24. Left ovary removed at age 23. Postmenopausal. , Benign Excisional Biopsy. Risk Values: Vidya 5 year model risk: 1.9%. NCI Lifetime model risk: 4.6%. Prior Study Comparison: 02/15/2020 Bilateral Screening Mammogram, [facility]. 03/21/2021 Bilateral Screening Mammogram, [facility]. 11/05/2022 Bilateral MG 3D screening mammo w/cad, [facility]. Tissue Density: There are scattered areas of fibroglandular density. Findings: Analyzed By CAD. Right breast: There is no suspicious group of microcalcifications or new suspicious mass. Benign-appearing calcifications right breast. Left breast: There is no suspicious group of microcalcifications or new suspicious mass. Benign-appearing calcifications left breast. Overall Assessment: Benign, BI-RAD 2 Management: Screening Mammogram of both breasts in [address] [facility] will attempt to contact patient to return for supplemental views and ultrasound if indicated. Patient should continue monthly self-breast exams. A clinical breast exam by your physician is recommended on an annual basis. This exam should not preclude additional follow-up of suspicious palpable abnormalities. Note on Vidya scores and lifetime risk: 1. A Vidya score greater than 3% is considered moderate risk. If this is the case, consider specialist referral to assess eligibility for a risk reducing agent. 2. If overall lifetime risk for the development of breast cancer is 20% or higher, the patient may qualify for future screening with alternating mammogram and breast MRI. [facility], , 02/17/2024 11:45 AM. Electronically signed and approved by: Reynaldo Oropeza DO
== END | disposition home or self-care (01) ==
LOC: RADMAMWWP 14:35
PROVIDERS: ATTEND Internal Medicine Geriatric Medicine
CPT/HCPCS: 77063; 77067

== ENCOUNTER → 2024-04-07 | Outpatient (CLI) | payer MEDICARE, OTHER ==
[2024-04-07 15:59] LABS: Basophils # (A) 0.04 X 10*3/uL (0.00-0.10); Basophils % (A) 0.6 %; Eosinophils # (A) 0.15 X 10*3/uL (0.04-0.35); Eosinophils % (A) 2.1 %; Lymphocytes % (A) 24.2 %; MCH 27.7 pg (27.0-32.0); MCHC 31.8 g/dL (32.0-37.0); Mean Platelet Volume 10.4 FL (9.5-12.2); Monocytes # (A) 0.68 X 10*3/uL (0.20-1.00); Monocytes % (A) 9.7 %; NRBC Per 100 WBC 0 X 10*3/uL (0.00-0.01); Neutrophils # (A) 4.42 X 10*3/uL (1.80-7.70); Platelet Count 331 X 10*3/uL (140-440); RBC 5.06 X 10*6/uL (4.10-5.20); WBC 7.02 X 10*3/uL (4.50-10.00)
[2024-04-07 16:15] LABS: ALT 49 U/L (8-44); AST 33 U/L (13-35); Albumin 4.2 g/dL (3.8-4.9); Alkaline Phosphatase 178 U/L (41-126); Blood Urea Nitrogen 15.7 mg/dL (9.0-27.0); Calcium 9.6 mg/dL (8.7-10.3); Carbon Dioxide 24.6 mmol/L (21.6-31.8); Chloride 106 mmol/L (96-109); Chol/HDL Ratio 1.82 Ratio; Glucose 75 mg/dL (70-110); LDL Cholesterol,Calculated 39.8 mg/dL (0.0-131.0); Potassium 4.3 mmol/L (3.5-5.5); Sodium 142 mmol/L (135-145); Total Bilirubin 0.2 mg/dL (0.3-1.2); Total Protein 6.2 g/dL (6.2-8.2); VLDL Calculation 12.94 mg/dL (5.00-40.00)
[2024-04-07 19:54] LABS: Microalbumin Creatinine Ratio <15 mg/g Cr (0-30); Urine Creatinine 82.7 mg/dL (28.0-217.0)
== END | disposition home or self-care (01) ==
LOC: LABWHC1 09:13
PROVIDERS: ATTEND Physician Assistant
DX: Z13.29 Encounter for screening for other suspected endocrine disorder (principal); I10 Essential (primary) hypertension; E11.65 Type 2 diabetes mellitus with hyperglycemia; E78.2 Mixed hyperlipidemia
CPT/HCPCS: 36415; 80053; 80061; 82043; 82570; 83036; 84443; 85025

== ENCOUNTER → 2024-08-15 | Outpatient (CLI) | payer MEDICARE, OTHER ==
[2024-08-15 15:33] LABS: Basophils # (A) 0.04 X 10*3/uL (0.00-0.10); Basophils % (A) 0.6 %; Eosinophils # (A) 0.06 X 10*3/uL (0.04-0.35); Eosinophils % (A) 0.8 %; HCT 43.7 % (37.2-46.3); Lymphocytes # (A) 1.45 X 10*3/uL (0.90-5.00); MCH 28.8 pg (27.0-32.0); MCV 89.9 FL (80.0-97.0); Mean Platelet Volume 10.2 FL (9.5-12.2); Monocytes # (A) 0.59 X 10*3/uL (0.20-1.00); Monocytes % (A) 8.1 %; NRBC Per 100 WBC 0 X 10*3/uL (0.00-0.01); Neutrophils # (A) 5.08 X 10*3/uL (1.80-7.70); Neutrophils % (A) 70.1 %; Platelet Count 357 X 10*3/uL (140-440); RBC 4.86 X 10*6/uL (4.10-5.20); RDW 13.4 % (11.5-14.5); WBC 7.25 X 10*3/uL (4.50-10.00)
[2024-08-15 15:59] LABS: ALT 42 U/L (8-44); AST 26 U/L (13-35); Albumin 4.3 g/dL (3.8-4.9); Albumin/Globulin Ratio 2.05 Ratio (1.60-3.17); Alkaline Phosphatase 132 U/L (41-126); Blood Urea Nitrogen 21.5 mg/dL (9.0-27.0); Calcium 9.9 mg/dL (8.7-10.3); Carbon Dioxide 21.5 mmol/L (21.6-31.8); Chloride 102 mmol/L (96-109); Chol/HDL Ratio 2.09 Ratio; Globulin 2.1 g/dL (1.6-3.3); Glucose 148 mg/dL (70-110); LDL Cholesterol,Calculated 61.1 mg/dL (0.0-131.0); Potassium 4.2 mmol/L (3.5-5.5); Sodium 138 mmol/L (135-145); Total Bilirubin 0.3 mg/dL (0.3-1.2); Total Protein 6.4 g/dL (6.2-8.2)
== END | disposition home or self-care (01) ==
LOC: LABWHC1 09:25
PROVIDERS: ATTEND Internal Medicine Geriatric Medicine
DX: E11.65 Type 2 diabetes mellitus with hyperglycemia (principal); R42 Dizziness and giddiness
CPT/HCPCS: 36415; 80053; 80061; 83036; 84443; 85025